=== PATIENT | male | born 1945 | race Caucasian/White ===

== ENCOUNTER 2023-07-10 12:53 | Emergency (ER) | payer OTHER ==
[2023-07-10] MEDS ORDERED: Sodium Chloride 0.9% 1,000 ML ONE ×2 (14:05→15:51)
[2023-07-10 14:53] LABS: Hematocrit 42.5 % (42.0-52.0); Hemoglobin 14.6 g/dL (14.0-18.0); Mean Corpuscular HGB CONC 34.3 g/dL (32.0-36.0); Mean Corpuscular Hemoglobin 30.1 pg (27.0-31.0); Mean Corpuscular Volume 87.9 fl (78.0-98.0); Mean Platelet Volume 7.3 fL (7.4-10.4); Platelet Count 238 10x3/uL (130-400); RBC Distribution Width 12.3 % (11.5-14.5); Red Blood Cell (RBC) Count 4.84 mill/uL (4.70-6.10); White Blood Cell (WBC) Count 12.2 10x3/uL (4.8-10.8)
[2023-07-10 15:02] LABS: ALT (SGPT) 23 U/L (8-55); AST (SGOT) 20 U/L (5-34); Albumin 4.3 g/dL (3.4-4.8); Alkaline Phosphatase 81 U/L (40-110); Anion Gap 16 mmol/L (10-20); BUN (Urea Nitrogen) 27 mg/dL (8.4-25.7); Bilirubin, Total 0.6 mg/dL (0.2-1.2); Calc. Creatinine Clearance 0 mL/min (70-130); Calcium 9.4 mg/dL (7.8-10.44); Carbon Dioxide 18 mmol/L (23-31); Chloride 110 mmol/L (98-107); Estimated GFR 39; Globulin 2.2 g/dL (2.4-3.5); Glucose 121 mg/dL (83-110); Protein, Total 6.5 g/dL (5.8-8.1); Sodium 141 mmol/L (136-145)
[2023-07-10 15:03] LABS: Troponin I Less than 0.010 ng/mL (< 0.028)
[2023-07-10 15:07] LABS: Band 3 % (5-11); Eosinophils 14 % (0-10); Lymphocytes 9 % (21-51); MDiff Complete? YES; Monocytes 5 % (0-10); Neutrophil 67 % (42-75); Platelet Adequacy Comment Appears Adequate
[2023-07-10] MEDS ORDERED: Potassium Chloride 20 MEQ TAB ONE (15:26)
[2023-07-11 18:11] LABS: Campy jejuni + coli by PCR Negative (Negative); STEC Shiga Toxin 1+2 Negative (Negative); Salmonella spp. by PCR Negative (Negative); Shigella spp + EIEC by PCR Negative (Negative)
== END 2023-07-10 17:30 | disposition home or self-care (01) ==
LOC: MADERS 12:53
DX: E87.6 Hypokalemia (principal); E86.0 Dehydration; N17.9 Acute kidney failure, unspecified; I25.10 Atherosclerotic heart disease of native coronary artery without angina pectoris; I48.91 Unspecified atrial fibrillation; E78.00 Pure hypercholesterolemia, unspecified; I10 Essential (primary) hypertension; Z79.82 Long term (current) use of aspirin; Z79.01 Long term (current) use of anticoagulants; Z79.899 Other long term (current) drug therapy
CPT/HCPCS: 80053; 83735; 84484; 85025; 87505; 87635; 87804; 93005; 96360; 96361; J7050

== ENCOUNTER 2025-03-02 09:27 | Emergency (ER) | payer OTHER ==
[2025-03-02] MEDS ORDERED: Colchicine 0.6 MG TAB ONE (10:53)
== END 2025-03-02 10:56 | disposition home or self-care (01) ==
LOC: MADERS 09:27
DX: M10.9 Gout, unspecified (principal); I25.10 Atherosclerotic heart disease of native coronary artery without angina pectoris; I10 Essential (primary) hypertension; I48.91 Unspecified atrial fibrillation; E78.00 Pure hypercholesterolemia, unspecified; K21.9 Gastro-esophageal reflux disease without esophagitis; Z79.01 Long term (current) use of anticoagulants; Z79.82 Long term (current) use of aspirin; Z79.899 Other long term (current) drug therapy
CPT/HCPCS: 99283